=== PATIENT | male | born 1955 | race Caucasian/White ===

== ENCOUNTER 2017-03-06 04:33 | Inpatient (IN) | payer MEDICARE, OTHER ==
[2017-03-06] VITALS (8 sets, daily range): BP systolic 164–198; BP diastolic 92–119; PULSE 78–97; RESP 12–20; TEMP 98.3–98.7; O2SAT 91–98
[~2017-03-06] VITALS: Ht 182.9 cm; Wt 90.0 kg
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
[2017-03-06] MEDS ORDERED: SERO400T PO (05:07)
[2017-03-06] MEDS ORDERED: SERO100T PO (05:07)
[2017-03-06 05:50] LABS: AUTOMATED NEUTROPHIL # 2.6 TH/MM3 (1.8-7.7); BASOPHIL % 0.5 % (0.0-2.0); EOSINOPHIL % 0.8 % (0.0-4.0); HEMATOCRIT 34.3 % (39.0-51.0); LYMPH % 38.9 % (9.0-44.0); MEAN CELL VOLUME 90.1 FL (80.0-100.0); MEAN CORPUSCULAR HEMOGLOBIN 30.2 PG (27.0-34.0); MEAN CORPUSCULAR HGB CONC 33.5 % (32.0-36.0); MONO % 8.2 % (0.0-8.0); NEUT % 51.6 % (16.0-70.0); PLATELET COUNT 86 TH/MM3 (150-450); RED CELL DISTRIBUTION WIDTH 14.4 % (11.6-17.2); WHITE BLOOD COUNT 5.1 TH/MM3 (4.0-11.0)
[2017-03-06 06:16] LABS: ALT (GPT) 17 U/L (12-78); ANION GAP 6 MEQ/L (5-15); AST (GOT) 19 U/L (15-37); BICARBONATE 29.2 MEQ/L (21.0-32.0); BLOOD UREA NITROGEN 25 MG/DL (7-18); CHLORIDE 107 MEQ/L (98-107); GLOMERULAR FILTRATION RATE 45 ML/MIN (>89); POTASSIUM 3.9 MEQ/L (3.5-5.1); SODIUM (NA) 142 MEQ/L (136-145)
[2017-03-06 06:20] LABS: HEMO FLAGS AUTO DIFF
[2017-03-06 06:25] LABS: OVALOCYTES 1+ (NORMAL); PLATELET ESTIMATE SMEAR LOW (NORMAL); PLATELET MORPHOLOGY NORMAL (NORMAL); SCAN/DIFF AUTO DIFF CONFIRMED
[2017-03-06 06:27] LABS: ALKALINE PHOSPHATASE 41 U/L (45-117); TOTAL BILIRUBIN ADULT 0.3 MG/DL (0.2-1.0)
[2017-03-06] MEDS: RESP: ALBUTEROL 2.5 MG/IPRATROPIUM 0.5 MG NEB (SCH) INH (07:20)
--- NOTE | 2017-03-06 07:21 | RADRPT ---
EXAM DATE/TIME: 03/06/2017 07:04 [facility] COMPARISON: No previous studies available for comparison. INDICATIONS : Wheezing, cough, body aches, tingling feeling in hands. MEDICAL HISTORY : None. SURGICAL HISTORY : None. ENCOUNTER: Initial ACUITY: 1 month PAIN SCORE: 0/10 LOCATION: Bilateral chest FINDINGS: A single view of the chest demonstrates the lungs to be symmetrically aerated without evidence of mas s or effusion. The cardiomediastinal contours are unremarkable reveal otherwise a tortuosity of the aorta . Osseous structures are intact. Patchy asymmetry of markings in the right medial base with sl ight elevation of the right hemidiaphragm suggest possible infiltrate CONCLUSION: Minimal elevation right hemidiaphragm with patchy markings in the right medial base suggesting minima l early infiltrate Saqib Dickerson MD on March 06, 2017 at 7:18 Board Certified Radiologist. This report was verified electronically.
[2017-03-06] MEDS ORDERED: cloNIDine HCL 0.2 MG TAB PO ONE (07:30)
[2017-03-06] MEDS ORDERED: methylPREDNISolone SOD SUCC 125 MG/2 ML VIAL IVP ONE (07:30)
[2017-03-06] MEDS ORDERED: AZITHROMYCIN 250 MG TAB PO ONE (08:45)
[2017-03-06] MEDS ORDERED: VENTAER INH ×2 (08:52→14:39)
[2017-03-06] MEDS ORDERED: AMLO5TAB2 PO ×2 (08:52→14:39)
[2017-03-06] MEDS ORDERED: AZIT250T3 PO ×2 (08:52→14:39)
[2017-03-06] MEDS ORDERED: PRED-503 PO ×2 (08:52→14:39)
--- NOTE | 2017-03-06 08:52 | PD ---
Physical Exam Narrative Received sign out from previous team to follow up CXR and reevaluate pt. 62yo M with bipolar disorder under Sal Act for disorganized behavior and stating he was going to kill his mother. Pt found to be wheezing and was given duonebs and methylprednisolone. Pt admits to being a cigarette smoker. He is well appearing and denies any chest pain or sob. He does have expiratory coarse breath sounds bilaterally. Denies any fever, nausea or vomiting. Labs reviewed, no leukocytosis. H/H mildly decreased at 11.5/34.3. Creatinine mildly elevated at 1.57, no prior to compare to. TSH mildly elevated at 4.72, will add T4. Alcohol negative. CXR showed minimal elevation in right hemidiaphragm with patchy markings in right medial base suggesting minimal early infiltrate. Pt given azithromycin 500mg PO. Pt reevaluated at bedside and feels better. O2 sat 93% on RA. Will discharge with COPD medication and a few days of azithromycin. BP is 168/119, will give amlodipine and start pt on amlodipine and have him follow up with primary care physician as an outpatient. Pt likely has chronic untreated HTN. Pt is pending psych evaluation. Data Data Last Documented VS Vital Signs Date Time Temp Pulse Resp B/P Pulse Ox O2 Delivery O2 Flow Rate FiO2 03/06/17 09:35 84 20 164/92 93 Room Air 03/06/17 08:10 2 03/06/17 05:03 98.6 Orders Complete Blood Count With Diff (03/06/17 04:56) Comprehensive Metabolic Panel (03/06/17 04:56) Thyroid Stimulating Hormone (03/06/17 04:56) Psych Screen (03/06/17 04:56) Drug Screen, Random Urine (03/06/17 04:56) Alcohol (Ethanol) (03/06/17 04:56) Methylprednisolone So Succ Inj (Solumedr (03/06/17 07:30) Albuterol-Ipratropium Neb (Duoneb Neb) (03/06/17 07:30) Clonidine (Catapres) (03/06/17 07:30) Chest, Single Ap (03/06/17 06:55) Diet Heart Healthy (03/06/17 Breakfast) Azithromycin (Zithromax) (03/06/17 08:45) Amlodipine (Norvasc) (03/06/17 09:00) Thyroxine (T4) (03/06/17 08:57) Admit Order (Ed Use Only) (03/06/17 ) Admit To Inpatient Psych (03/06/17 ) Code Status (03/06/17 11:42) Vital Signs (Adult) JUDITH.Q12H.E (03/06/17 11:42) Activity Oob Ad Venita (03/06/17 11:42) Level Of Observation (Psych) (03/06/17 11:42) Aims-Abnormal Invol Move Scale ONCE (03/06/17 11:42) Acetaminophen (Tylenol) (03/06/17 11:45) Magnesium Hydroxide Liq (Milk Of Magnesi (03/06/17 11:45) Al-Mag Hy-Si 40-40-4 Mg/Ml Liq (Mag-Al P (03/06/17 11:45) Lipid Profile (03/07/17 06:00) Hemoglobin (Hgb) A1c (03/07/17 06:00) Labs Laboratory Tests Test 03/06/17 03/06/17 05:28 10:24 White Blood Count 5.1 TH/MM3 Red Blood Count 3.80 MIL/MM3 Hemoglobin 11.5 GM/DL Hematocrit 34.3 % Mean Corpuscular Volume 90.1 FL Mean Corpuscular Hemoglobin 30.2 PG Mean Corpuscular Hemoglobin 33.5 % Concent Red Cell Distribution Width 14.4 % Platelet Count 86 TH/MM3 Mean Platelet Volume 9.5 FL Neutrophils (%) (Auto) 51.6 % Lymphocytes (%) (Auto) 38.9 % Monocytes (%) (Auto) 8.2 % Eosinophils (%) (Auto) 0.8 % Basophils (%) (Auto) 0.5 % Neutrophils # (Auto) 2.6 TH/MM3 Lymphocytes # (Auto) 2.0 TH/MM3 Monocytes # (Auto) 0.4 TH/MM3 Eosinophils # (Auto) 0.0 TH/MM3 Basophils # (Auto) 0.0 TH/MM3 CBC Comment AUTO DIFF Differential Comment AUTO DIFF CONFIRMED Platelet Estimate LOW Platelet Morphology Comment NORMAL Ovalocytes 1+ Sodium Level 142 MEQ/L Potassium Level 3.9 MEQ/L Chloride Level 107 MEQ/L Carbon Dioxide Level 29.2 MEQ/L Anion Gap 6 MEQ/L Blood Urea Nitrogen 25 MG/DL Creatinine 1.57 MG/DL Estimat Glomerular Filtration 45 ML/MIN Rate Random Glucose 92 MG/DL Calcium Level 8.4 MG/DL Total Bilirubin 0.3 MG/DL Aspartate Amino Transf 19 U/L (AST/SGOT) Alanine Aminotransferase 17 U/L (ALT/SGPT) Alkaline Phosphatase 41 U/L Total Protein 6.9 GM/DL Albumin 3.1 GM/DL Thyroxine (T4) 4.3 MCG/DL Thyroid Stimulating Hormone 4.720 uIU/ML 3rd Gen Ethyl Alcohol Level LESS THAN 3 MG/DL Urine Opiates Screen NEG Urine Barbiturates Screen NEG Urine Amphetamines Screen NEG Urine Benzodiazepines Screen POS Urine Cocaine Screen NEG Urine Cannabinoids Screen NEG MDM Supervised Visit with RAMESH: Yes Diagnosis Primary Impression: COPD exacerbation Additional Instruction: Please follow up with primary care physician as an outpatient for your elevated blood pressure and elevated kidney function as well as possible COPD. Med/Other Pt SpecificInfo: Prescription(s) given Scripts Amlodipine 5 Mg Tab5 Mg PO DAILY #30 TAB Ref 0 Prov:Natalia Kaye DO 03/06/17 Prednisone (Deltasone)20 Mg Tab20 Mg PO BID 5 Days Ref 0 Prov:Natalia Kaye DO 03/06/17 Albuterol 18 GM Inh (Ventolin Hfa 18 GM Inh)90 Mcg/Act Aer2 Puff INH Q4H PRN ( SHORTNESS OF BREATH) #1 INHALER Ref 0 Prov:Natalia Kaye DO 03/06/17 Azithromycin 250 Mg [id number] Mg PO DAILY 5 Days Ref 0 Prov:Natalia Kaye DO 03/06/17 Condition: Stable Natalia Kaye DO Mar 06, 2017 08:52
[2017-03-06] MEDS ORDERED: amLODIPine BESYLATE 5 MG TAB PO ONE (09:00)
[2017-03-06 11:03] LABS: AMPHETAMINE, URINE NEG (NEG); BARBITURATES, URINE NEG (NEG); COCAINE, URINE NEG (NEG)
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
[2017-03-06] MEDS ORDERED: ALUMINUM/MAGNESIUM/SIMETH 30 ML CUP PO PRN (11:45)
[2017-03-06] MEDS ORDERED: ACETAMINOPHEN 325 MG TAB PO PRN (11:45)
[2017-03-06] MEDS ORDERED: MAGNESIUM HYDROXIDE SUSP 30 ML CUP PO PRN (11:45)
[2017-03-06] MEDS ORDERED: hydrOXYzine HCL 50 MG TAB PO ONE (20:45)
--- NOTE | 2017-03-06 22:09 | HHI.PR ---
Addendum to Inpatient Note Addendum Reason: Additional Documentation Additional Information I was contacted by pt's psychiatry nurse Rebeka Blackburn about 10min ago that pt is a brand new admission to her and that pt has been having high blood pressure and wanted blood pressure meds PRN. chart reviewed on computer Patient was a new admission to our hospital. Patient was evaluated by ER physician. Patient was also evaluated by psychiatry nurse practitioner in ER in the morning. Patient was given Norvasc 5 mg by mouth 1 dose in the morning. Medications reconciliation reveals that this was his home meds. There was no psychiatry medications on EMR. It seems the patient was admitted for acute psychiatric reason. I therefore informed the above to patient's nurse Rebeka, and that I question whether patient is someone requiring psychiatry medications to control his blood pressure rather than blood pressure medicines since he already received his home meds dose. Furthermore, I have informed her that this was a routine consult and that medical service has 24 hours to see this patient. I will not be making any decisions without seeing the patient in person. I recommended to patient's nurse to call psychiatry nurse practitioner or psychiatry doctor regarding this and to make sure that patient has psychiatry medications to control. Our hospital policy is that if the patient needs to be seen medically stat overnight, physician to physician telephone consult needs to be placed. Saul Nettles MD Mar 06, 2017 22:09
[2017-03-06] MEDS ORDERED: fluPHENAZine HCL 25 MG/10 ML VIAL IM SCH (23:15)
[2017-03-06] MEDS ORDERED: LORazepam 2 MG TAB PO SCH (23:15)
[2017-03-06] MEDS ORDERED: LORazepam 2 MG/ML VIAL IM SCH (23:15)
[2017-03-07] MEDS ORDERED: LORazepam 2 MG/ML VIAL ONE (03:31)
[2017-03-07] MEDS ORDERED: LORazepam 2 MG/ML VIAL IM SCH (03:45)
[2017-03-07] MEDS ORDERED: LORazepam 2 MG TAB PO SCH (03:45)
[2017-03-07] MEDS ORDERED: fluPHENAZine HCL 25 MG/10 ML VIAL IM SCH (03:45)
[2017-03-07] MEDS ORDERED: LORazepam 2 MG/ML VIAL IM PRN (08:45)
[2017-03-07] MEDS ORDERED: OLANZapine IM 10 MG VIAL IM PRN (08:45)
[2017-03-07] MEDS ORDERED: diphenhydrAMINE HCL 50 MG/ML VIAL IM PRN (08:45)
[2017-03-07] MEDS ORDERED: fluPHENAZine HCL 25 MG/10 ML VIAL IM PRN (08:45)
[2017-03-07] MEDS ORDERED: diphenhydrAMINE HCL 50 MG CAP PO PRN (08:45)
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
[2017-03-07] MEDS: OLANZapine ODT 10 MG TAB PO SCH ×2 (09:00→20:22)
--- NOTE | 2017-03-07 11:19 | PD.CONS ---
HPI Service [facility] Hospitalists Consult Requested By Dr. Araujo, Psychiatrist. Reason for Consult Hypertension management. Primary Care Physician No Primary Care Physician Diagnoses: History of Present Illness Written by Gualberto Amezcua, acting as scribe for Dr. Kleber Verma on 03/07/17 at 11: 18. Hospitalist team consulted by Dr. Araujo to manage Mr. Pena' hypertension. At time of visit, Mr. Cyr was laying a bed, with blanket wrapped around him. He said he "didn;t want to be seen by anybody." Dr. Verma explained the nature of the visit and Mr. Cyr again stated "I don;t want to be seen by anybody." As a result, histoy was not directly obtained from him as were review of symptoms. As such, the following is taken from the ED report. 62yo M with bipolar disorder under Sal Act for disorganized behavior and stating he was going to kill his mother. Pt found to be wheezing and was given duonebs and methylprednisolone. Pt admits to being a cigarette smoker. He is well appearing and denies any chest pain or sob. He does have expiratory coarse breath sounds bilaterally. Denies any fever, nausea or vomiting. Labs reviewed, no leukocytosis. H/H mildly decreased at 11.5/34.3. Creatinine mildly elevated at 1.57, no prior to compare to. TSH mildly elevated at 4.72, will add T4. Alcohol negative. CXR showed minimal elevation in right hemidiaphragm with patchy markings in right medial base suggesting minimal early infiltrate. Pt given azithromycin 500mg PO. Pt reevaluated at bedside and feels better. O2 sat 93% on RA. Will discharge with COPD medication and a few days of azithromycin. BP is 168/119, will give amlodipine and start pt on amlodipine and have him follow up with primary care physician as an outpatient. Pt likely has chronic untreated HTN. Review of Systems ROS Limitations: Clinical Condition, Uncooperative, Refused, Psychotic Past Family Social History Allergies: Coded Allergies: Haloperidol (Verified Allergy, Severe, 03/06/17) UNKNOWN REACTION Thorazine (Verified Allergy, Severe, 03/06/17) EPS SYMPTOMS PER PATIENT Past Medical History Per records bipolar disorder, HTN, also patient was recently in the ED with COPD exacerbation Past Surgical History Per records cholecystectomy Reported Medications Reported Meds & Active Scripts Active Amlodipine (Amlodipine Besylate) 5 Mg Tab 5 Mg PO DAILY Deltasone (Prednisone) 20 Mg Tab 20 Mg PO BID 5 Days Ventolin Hfa 18 GM Inh (Albuterol Sulfate) 90 Mcg/Act Aer 2 Puff INH Q4H PRN Azithromycin 250 Mg Tab 250 Mg PO DAILY 5 Days Reported Azithromycin 250 Mg Tab 250 Mg PO DAILY Amlodipine (Amlodipine Besylate) 5 Mg Tab 5 Mg PO DAILY Deltasone (Prednisone) 20 Mg Tab 20 Mg PO BID Ventolin Hfa 18 GM Inh (Albuterol Sulfate) 90 Mcg/Act Aer 2 Puff INH Q4H PRN Seroquel (Quetiapine Fumarate) 100 Mg Tab 100 Mg PO DAILY Seroquel (Quetiapine Fumarate) 400 Mg Tab 400 Mg PO HS Active Ordered Medications Current Medications Medications (Trade) Dose Ordered Sig/Luis Route Start Time Stop Time Status Last Admin (Tylenol) 650 mg Q4H PRN PO 03/06/17 11:45 (Milk Of Magnesia Liq) 30 ml DAILY PRN PO 03/06/17 11:45 (Mag-Al Plus Susp Liq) 30 ml Q6H PRN PO 03/06/17 11:45 (ZyPREXA ZYDIS ODT) 10 mg Q12HR PO 03/07/17 09:00 (ZyPREXA INJ) 10 mg Q12H PRN IM 03/07/17 08:45 03/07/17 11:01 (Prolixin Inj) 5 mg TID PRN IM 03/07/17 08:45 (Prolixin) 5 mg TID PRN PO 03/07/17 08:45 (Ativan) 2 mg Q6H PRN PO 03/07/17 08:45 (Ativan Inj) 2 mg Q6H PRN IM 03/07/17 08:45 (Benadryl) 50 mg Q6H PRN PO 03/07/17 08:45 (Benadryl Inj) 50 mg Q6H PRN IM 03/07/17 08:45 (Catapres) 0.1 mg Q8HR PRN PO 03/07/17 08:45 (Norvasc) 10 mg DAILY PO 03/08/17 09:00 (Romazicon Inj) 0.2 mg Q1M PRN IV PUSH 03/07/17 12:45 (Ativan) 1 mg Q4H PRN PO 03/07/17 12:45 (Ativan Inj) 1 mg Q4H PRN IV PUSH 03/07/17 12:45 (Ativan) 2 mg Q2H PRN PO 03/07/17 12:45 (Ativan Inj) 2 mg Q2H PRN IV PUSH 03/07/17 12:45 (Ativan Inj) 2 mg Q1H PRN IV PUSH 03/07/17 12:45 (Ativan Inj) 2 mg Q15M PRN IV PUSH 03/07/17 12:45 Family History Non obtainable, not in records Social History Per records smoking unspecified, no EtOH or illicit drug use. Physical Exam Vital Signs Vital Signs Date Time Temp Pulse Resp B/P Pulse Ox O2 Delivery O2 Flow Rate FiO2 03/06/17 18:01 98.3 90 17 191/99 98 03/06/17 14:15 98.7 90 18 173/115 95 03/06/17 12:35 78 18 175/109 Physical Exam GENERAL: This is a well-nourished, well-developed patient, in bed, psychotic, covered in blankets refusing physical exam or answering questions Result Diagram: 03/06/17 0528 03/06/17 0528 Imaging Last Impressions Chest X-Ray 03/06/17 0655 Signed Impressions: Service Date/Time: Monday, March 06, 2017 07:04 - CONCLUSION: Minimal elevation right hemidiaphragm with patchy markings in the right medial base suggesting minimal early infiltrate Saqib Dickerson MD Assessment and Plan Assessment and Plan 62yo M with bipolar disorder, HTN, COPD who came under Sal Act for disorganized behavior and stating he was going to kill his mother. Pt found to be wheezing and was given duonebs and methylprednisolone. The hospitalist is consulted for uncontrolled HTN, medical management. Psychosis: management per psychiatry HTN, uncontrolled. Increase amlodipine, add clonidine prn, hydralazine prn COPD continue home meds. Satting well on room air. he doesn't appear sob. Continue Azithromax that was initiated in the ED. Patient refused answering questions and also refused physical exam. This note was transcribed by renata AVILES I, Dr. Janie Verma personally performed the history, physical exam, and medical decision making; and confirmed the accuracy of the information in the transcribed note. Authenticated by Dr. Janie Verma on 03/07/17 at 11:18. Discussed Condition With nurse Gualberto Amezcua Jr. Mar 07, 2017 11:19 Janie Verma MD Mar 07, 2017 11:52
[2017-03-07] MEDS ORDERED: FLUMAZENIL 0.5 MG/5 ML VIAL IV PUSH PRN (12:45)
[2017-03-07] MEDS ORDERED: LORazepam 2 MG/ML VIAL IV PUSH PRN ×4 (12:45)
[2017-03-07] MEDS ORDERED: LORazepam 2 MG TAB PO PRN (12:45)
[2017-03-07] MEDS: cloNIDine HCL 0.1 MG TAB PO PRN (20:24)
[2017-03-07] MEDS: LORazepam 2 MG TAB PO PRN (20:24)
[2017-03-08] MEDS: LORazepam 2 MG TAB PO PRN ×2 (03:42→17:26)
[2017-03-08] MEDS: cloNIDine HCL 0.1 MG TAB PO PRN (03:42)
[2017-03-08 04:28] VITALS: BP 183/116; PULSE 79; RESP 18; TEMP 97.8; O2SAT 96
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
[2017-03-08] MEDS: OLANZapine ODT 10 MG TAB PO SCH ×2 (07:55→20:42)
[2017-03-08] MEDS ORDERED: PILL SPLITTER OTHER PRN (08:00)
[2017-03-08] MEDS ORDERED: hydrALAZINE HCL 10 MG TAB PO PRN (08:00)
[2017-03-08] MEDS ORDERED: cloNIDine HCL 0.1 MG TAB PO PRN (08:00)
[2017-03-08 08:46] LABS: AUTOMATED NEUTROPHIL # 3.8 TH/MM3 (1.8-7.7); BASOPHIL % 0.3 % (0.0-2.0); EOSINOPHIL % 0.7 % (0.0-4.0); HEMATOCRIT 40.3 % (39.0-51.0); HEMO FLAGS DIFF FINAL; LYMPH % 37.6 % (9.0-44.0); LYMPHOCYTE # 2.7 TH/MM3 (1.0-4.8); MEAN CELL VOLUME 89.5 FL (80.0-100.0); MEAN CORPUSCULAR HEMOGLOBIN 30.6 PG (27.0-34.0); MEAN CORPUSCULAR HGB CONC 34.2 % (32.0-36.0); MONO % 7.9 % (0.0-8.0); NEUT % 53.5 % (16.0-70.0); PLATELET COUNT 106 TH/MM3 (150-450); RED CELL DISTRIBUTION WIDTH 14.4 % (11.6-17.2); WHITE BLOOD COUNT 7.1 TH/MM3 (4.0-11.0)
[2017-03-08 09:07] LABS: ANION GAP 5 MEQ/L (5-15); AST (GOT) 20 U/L (15-37); BICARBONATE 34.4 MEQ/L (21.0-32.0); BLOOD UREA NITROGEN 26 MG/DL (7-18); CHLORIDE 104 MEQ/L (98-107); GLOMERULAR FILTRATION RATE 58 ML/MIN (>89); POTASSIUM 4.5 MEQ/L (3.5-5.1); SODIUM (NA) 143 MEQ/L (136-145)
[2017-03-08] MEDS: LORazepam 1 MG TAB PO PRN ×2 (09:10→13:57)
[2017-03-08] MEDS: METOPROLOL TARTRATE 25 MG TAB PO SCH ×2 (09:12→17:25)
[2017-03-08 09:13] LABS: ALKALINE PHOSPHATASE 45 U/L (45-117); ALT (GPT) 21 U/L (12-78); HDL CHOLESTEROL 57.1 MG/DL (40.0-60.0); LDL CHOLESTEROL 58 MG/DL (0-99); TOTAL BILIRUBIN ADULT 0.6 MG/DL (0.2-1.0)
[2017-03-08 09:46] VITALS: BP 161/97; PULSE 70; RESP 18
--- NOTE | 2017-03-08 12:13 | HHI.PYPN ---
Subjective Remarks Patient seen in his room with nurse Michelle medical student Saida. Chart reviewed. Patient irritable with me minimizes behaviors that led to this hospitalization. States he and his mother get along well with the support each other. He minimizes his prior history of mental health problems. Patient was admitted to Dr. Kurt wagoner service under the Sal act. His H&P reviewed and agreed with. He has done a first opinion petition supporting Sal act. I agree. Patient meets criteria for involuntary psychiatric hospitalization under the Sal act. Thus I will cosign second opinion petition supporting Sal act Review of Systems Constitutional: DENIES: Diaphoretic episodes, Fatigue, Fever, Weight gain, Weight loss, Chills, Dizziness, Change in appetite, Night Sweats Endocrine: DENIES: Heat/cold intolerance, Polydipsia, Polyuria, Polyphagia Eyes: DENIES: Blurred vision, Diplopia, Eye inflammation, Eye pain, Vision loss , Photosensitivity, Double Vision Ears, nose, mouth, throat: DENIES: Tinnitus, Hearing loss, Vertigo, Nasal discharge, Oral lesions, Throat pain, Hoarseness, Ear Pain, Running Nose, Epistaxis, Sinus Pain, Toothache, Odynophagia Respiratory: DENIES: Apneas, Cough, Snoring, Wheezing, Hemoptysis, Sputum production, Shortness of breath Cardiovascular: DENIES: Chest pain, Palpitations, Syncope, Dyspnea on Exertion , PND, Lower Extremity Edema, Orthopnea, Claudication Gastrointestinal: DENIES: Abdominal pain, Black stools, Bloody stools, Constipation, Diarrhea, Nausea, Vomiting, Difficulty Swallowing, Anorexia Genitourinary: DENIES: Sexual dysfunction, Urinary frequency, Urinary incontinence, Urgency, Hematuria, Dysuria, Nocturia, Penile Discharge, Testicular Pain, Testicular Swelling Musculoskeletal: DENIES: Joint pain, Muscle aches, Stiffness, Joint Swelling, Back pain, Neck pain Integumentary: DENIES: Abnormal pigmentation, Nail changes, Pruritus, Rash Hematologic/lymphatic: DENIES: Bruising, Lymphadenopathy Immunologic/allergic: DENIES: Eczema, Urticaria Neurologic: DENIES: Abnormal gait, Headache, Localized weakness, Paresthesias, Seizures, Speech Problems, Tremor, Poor Balance Psychiatric: COMPLAINS OF: Mood changes, Agitation Objective Alert: Yes [place]: Person, Place (knows he is in a hospital ) Mood: Other (labile) Affect: Other (expansive) Memory Intact: Comment (Not formally tetsed) Hallucinations: Other (deneis at present) Delusions: Yes Delusion Type: Paranoid (Believes his mother is trying to harm him) Suicidal: Ideation (deneis) Homicidal: Ideation (deneis at present but verbalized ideas when he was picked up by the police.) Insight/Judgment Poor Labs Test 03/08/17 07:17 White Blood Count 7.1 TH/MM3 Red Blood Count 4.50 MIL/MM3 Hemoglobin 13.8 GM/DL Hematocrit 40.3 % Mean Corpuscular Volume 89.5 FL Mean Corpuscular Hemoglobin 30.6 PG Mean Corpuscular Hemoglobin 34.2 % Concent Red Cell Distribution Width 14.4 % Platelet Count 106 TH/MM3 Mean Platelet Volume 10.2 FL Neutrophils (%) (Auto) 53.5 % Lymphocytes (%) (Auto) 37.6 % Monocytes (%) (Auto) 7.9 % Eosinophils (%) (Auto) 0.7 % Basophils (%) (Auto) 0.3 % Neutrophils # (Auto) 3.8 TH/MM3 Lymphocytes # (Auto) 2.7 TH/MM3 Monocytes # (Auto) 0.6 TH/MM3 Eosinophils # (Auto) 0.0 TH/MM3 Basophils # (Auto) 0.0 TH/MM3 CBC Comment DIFF FINAL Differential Comment Sodium Level 143 MEQ/L Potassium Level 4.5 MEQ/L Chloride Level 104 MEQ/L Carbon Dioxide Level 34.4 MEQ/L Anion Gap 5 MEQ/L Blood Urea Nitrogen 26 MG/DL Creatinine 1.27 MG/DL Estimat Glomerular Filtration 58 ML/MIN Rate Random Glucose 84 MG/DL Calcium Level 8.8 MG/DL Total Bilirubin 0.6 MG/DL Aspartate Amino Transf 20 U/L (AST/SGOT) Alanine Aminotransferase 21 U/L (ALT/SGPT) Alkaline Phosphatase 45 U/L Total Protein 7.2 GM/DL Albumin 3.2 GM/DL Triglycerides Level 108 MG/DL Cholesterol Level 137 MG/DL LDL Cholesterol 58 MG/DL HDL Cholesterol 57.1 MG/DL Cholesterol/HDL Ratio 2.39 RATIO Vitals/IOs Vital Signs Date Time Temp Pulse Resp B/P Pulse Ox O2 Delivery O2 Flow Rate FiO2 03/08/17 09:46 70 18 161/97 03/08/17 04:28 97.8 96 03/06/17 09:35 Room Air 03/06/17 08:10 2 Assessment & Plan Problem List: (1) Schizoaffective disorder ICD Code: F25.9 Assessment & Plan Estimated LOS: days to be determined by patient's treatment team Justification for Cont. Inpt. This time patient will decompensate placed a lower level of care Discharge Planning To be determined by treatment team Request HC Surrog/Guard Advoc?: Yes Problem Qualifiers (1) Schizoaffective disorder: Qualified Code: F25.8 - Other schizoaffective disorders Jimenez Benavidez MD Mar 08, 2017 12:13
[2017-03-08 14:23] LABS: BLOOD, URINE NEG (NEG); COMMENT (UR) CULT NOT INDICATED; CULTURE IF INDICATED CULT NOT INDICATED; GLUCOSE,URINE NEG (NEG); KETONE, URINE NEG (NEG); NITRITE,URINE NEG (NEG); URINE COLOR YELLOW (YELLW/STRAW)
--- NOTE | 2017-03-08 15:26 | HHI.PR ---
Subjective Remarks In bed, more cooperative today. Says she has no headache or change in vision. No n/v/d/c. Says she is having BP and was started on meds however he did not take his meds. Denies headache, motor or sensory deficit. No n/v/d/c. No fever or chills. No sob or cough. Objective Vitals Vital Signs Date Time Temp Pulse Resp B/P Pulse Ox O2 Delivery O2 Flow Rate FiO2 03/08/17 09:46 70 18 161/97 03/08/17 04:28 97.8 79 18 183/116 96 Result Diagram: 03/08/1771603/08/17716 Imaging Last Impressions Chest X-Ray 03/06/17 0655 Signed Impressions: Service Date/Time: Monday, March 06, 2017 07:04 - CONCLUSION: Minimal elevation right hemidiaphragm with patchy markings in the right medial base suggesting minimal early infiltrate Saqib Dickerson MD Objective Remarks GENERAL: 62-year-old male, sitting in bed, well-nourished well-developed patient , appears in not acute distress. SKIN: Warm and dry. HEAD: Atraumatic. Normocephalic. EYES: Pupils equal and round. No scleral icterus. No injection or drainage. ENT: No nasal bleeding or discharge. Mucous membranes pink and moist. NECK: Trachea midline. No JVD. CARDIOVASCULAR: Regular rate and rhythm. RESPIRATORY: No accessory muscle use. Clear to auscultation. Breath sounds equal bilaterally. GASTROINTESTINAL: Abdomen soft, non-tender, nondistended. Hepatic and splenic margins not palpable. MUSCULOSKELETAL: Extremities without clubbing, cyanosis, or edema. No obvious deformities. NEUROLOGICAL: Awake and alert. No obvious cranial nerve deficits. Motor grossly within normal limits. Five out of 5 muscle strength in the arms and legs. Normal speech. PSYCHIATRIC: Appropriate mood and affect; insight and judgment normal. A/P Assessment and Plan 62yo M with bipolar disorder, HTN, COPD who came under Sal Act for disorganized behavior and stating he was going to kill his mother. Pt found to be wheezing and was given duonebs and methylprednisolone. The hospitalist is consulted for uncontrolled HTN, medical management. Psychosis: management per psychiatry HTN, uncontrolled. Increase amlodipine, add clonidine prn, hydralazine prn. Add metoprolol as BP still elevated and also noted mild tachycardia PNA CXR reviewed poss right lower lung infiltrate, sattign well on room air , no cough. Continue Z pack. COPD without exacerbation at this time. Monitor. \Ccontinue home meds. Satting well on room air. he doesn't appear sob. Continue Azithromax that was initiated in the ED. Discussed Condition With patient, nurse, Dr Leonard psych Janie Verma MD Mar 08, 2017 15:26
[2017-03-08 16:38] LABS: HEMOGLOBIN A1a 1.2 %; HEMOGLOBIN A1b 0.8 %; HEMOGLOBIN Ao 84.9 %; HEMOGLOBIN F 1.4 %; HEMOGLOBIN LA1C 1.9 %; HEMOGLOBIN P3 3.9 %
[2017-03-08 18:09] VITALS: BP 173/109; PULSE 96; RESP 18; TEMP 98.6; O2SAT 97
[2017-03-09 03:55] VITALS: BP 160/116
[2017-03-09 05:58] VITALS: BP 140/99; PULSE 78; RESP 18; TEMP 98.2; O2SAT 97
[2017-03-09] MEDS: OLANZapine ODT 10 MG TAB PO SCH (09:00)
[2017-03-09] MEDS: AZITHROMYCIN 250 MG TAB PO SCH (09:00)
[2017-03-09] MEDS: METOPROLOL TARTRATE 25 MG TAB PO SCH ×2 (09:00→21:40)
--- NOTE | 2017-03-09 09:56 | HHI.PYPN ---
Subjective Remarks Patient seen and examined with nurse. Chart reviewed. Case discussed with nursing staff who reports the patient was agitated overnight and required Ativan but has been calmer so far this morning. On my examination today, the patient is calm and cooperative. He says that his goal is to get back to the [facility] and get his medications prescribed. He denies any SI, HI or AVH. He admits to having had "troubles here and there" with his mother but says that his hope is to reconcile and his relationship with her. Denies any substance use prior to admission and reports no withdrawal symptoms now. Denies side effects from medications and is agreeable to titration of his Zyprexa. No physical complaints. Review of Systems ROS Limitations: Poor Historian Except as stated in HPI: all other systems reviewed are Neg Objective Alert: Yes [place]: Person, Place Mood: Calm Affect: Appropriate Memory Intact: Comment (not formally assessed) Hallucinations: Other (denies hallucinations) Delusions: No Delusion Type: Other (no delusional material) Suicidal: Ideation (denies SI) Homicidal: Ideation (denies HI) Insight/Judgment Poor Remarks No motor abnormalities noted. No signs of withdrawal noted. Grooming and hygiene fair. Resolving thought disorder. Labs Test 03/08/17 13:20 Urine Color YELLOW Urine Turbidity CLEAR Urine pH 7.0 Urine Specific [place] 1.012 Urine Protein 300 mg/dL Urine Glucose (UA) NEG mg/dL Urine Ketones NEG mg/dL Urine Occult Blood NEG Urine Nitrite NEG Urine Bilirubin NEG Urine Urobilinogen LESS THAN 2.0 MG/DL Urine Leukocyte Esterase NEG Urine RBC 1 /hpf Urine WBC LESS THAN 1 /hpf Microscopic Urinalysis Comment CULT NOT INDICATED Vitals/IOs Vital Signs Date Time Temp Pulse Resp B/P Pulse Ox O2 Delivery O2 Flow Rate FiO2 03/09/17 05:58 98.2 78 18 140/99 97 03/06/17 09:35 Room Air 03/06/17 08:10 2 Assessment & Plan Problem List: (1) Schizoaffective disorder ICD Code: F25.9 Assessment & Plan Titrate Zyprexa to 10/15 mg daily to target residual psychotic symptoms. Appreciate hospitalist input. Continue other psychotropics as ordered. Continue other medications and care as ordered. Justification for Cont. Inpt. Medication change in process. Discharge Planning Possible discharge sometime next week if patient continues to improve. Request HC Surrog/Guard Advoc?: Yes Problem Qualifiers (1) Schizoaffective disorder: Qualified Code: F25.8 - Other schizoaffective disorders Kurt Leonard MD Mar 09, 2017 09:56
[2017-03-09 18:00] VITALS: BP 140/69; PULSE 64; RESP 18; TEMP 98.5; O2SAT 97
[2017-03-09] MEDS: OLANZapine ODT 15 MG TAB PO SCH (21:39)
[2017-03-10] MEDS: LORazepam 2 MG TAB PO PRN (03:09)
[2017-03-10 03:15] VITALS: BP 168/84; PULSE 80; RESP 22; O2SAT 92
[2017-03-10] MEDS: METOPROLOL TARTRATE 25 MG TAB PO SCH ×2 (08:41→20:41)
[2017-03-10] MEDS: OLANZapine ODT 10 MG TAB PO SCH (08:42)
[2017-03-10] MEDS: AZITHROMYCIN 250 MG TAB PO SCH (08:42)
[2017-03-10 10:02] VITALS: BP 126/79; PULSE 80; RESP 18
--- NOTE | 2017-03-10 13:11 | HHI.PYPN ---
Subjective Remarks Pt seen and discussed with staff. Staff report that pt has been displaying poor impulse control, bizarre behavior and obsessively masturbating. He is tolerating increase in olanzapine without side effects. No SI/HI Objective Alert: Yes [place]: Person, Place Mood: Calm Affect: Other (intense stare) Memory Intact: Comment (no gross deficits) Hallucinations: Other (denies hallucinations) Delusions: No Delusion Type: Other (no delusional material) Suicidal: Ideation (denies SI) Homicidal: Ideation (denies HI) Insight/Judgment poor Remarks disorganized Vitals/IOs Vital Signs Date Time Temp Pulse Resp B/P Pulse Ox O2 Delivery O2 Flow Rate FiO2 03/10/17 10:02 80 18 126/79 03/10/17 03:15 92 03/09/17 18:00 98.5 03/06/17 09:35 Room Air 03/06/17 08:10 2 Assessment & Plan Problem List: (1) Schizoaffective disorder ICD Code: F25.9 Assessment & Plan Continue curent tx plan. Estimated LOS: days Justification for Cont. Inpt. disorganization and severe impairments in social functioning Request HC Surrog/Guard Advoc?: Yes Problem Qualifiers (1) Schizoaffective disorder: Qualified Code: F25.8 - Other schizoaffective disorders Raquel Lei MD Mar 10, 2017 13:11
--- NOTE | 2017-03-10 13:53 | HHI.PR ---
Subjective Remarks In bed. Says he ate lunch no n/v/d/c. Denies any pain. No cp, sob, fever or chills. No cough. No headache. Objective Vitals Vital Signs Date Time Temp Pulse Resp B/P Pulse Ox O2 Delivery O2 Flow Rate FiO2 03/10/17 10:02 80 18 126/79 03/10/17 03:15 80 22 168/84 92 03/09/17 18:00 98.5 64 18 140/69 97 Result Diagram: 03/08/1717 03/08/17 0717 Imaging Last Impressions Chest X-Ray 03/06/17 0655 Signed Impressions: Service Date/Time: Monday, March 06, 2017 07:04 - CONCLUSION: Minimal elevation right hemidiaphragm with patchy markings in the right medial base suggesting minimal early infiltrate Saqib Dickerson MD Objective Remarks GENERAL: 62-year-old male, sitting in bed, well-nourished well-developed patient , appears in not acute distress. SKIN: Warm and dry. HEAD: Atraumatic. Normocephalic. EYES: Pupils equal and round. No scleral icterus. No injection or drainage. ENT: No nasal bleeding or discharge. Mucous membranes pink and moist. NECK: Trachea midline. No JVD. CARDIOVASCULAR: Regular rate and rhythm. RESPIRATORY: No accessory muscle use. Clear to auscultation. Breath sounds equal bilaterally. GASTROINTESTINAL: Abdomen soft, non-tender, nondistended. Hepatic and splenic margins not palpable. MUSCULOSKELETAL: Extremities without clubbing, cyanosis, or edema. No obvious deformities. NEUROLOGICAL: Awake and alert. No obvious cranial nerve deficits. Motor grossly within normal limits. Five out of 5 muscle strength in the arms and legs. Normal speech. PSYCHIATRIC: Appropriate mood and affect; insight and judgment normal. A/P Assessment and Plan 62yo M with bipolar disorder, HTN, COPD who came under Sal Act for disorganized behavior and stating he was going to kill his mother. Pt found to be wheezing and was given duonebs and methylprednisolone. The hospitalist is consulted for uncontrolled HTN, medical management. Psychosis: management per psychiatry HTN, uncontrolled. Increase amlodipine, add clonidine prn, hydralazine prn. Add metoprolol as BP still elevated and also noted mild tachycardia. Discussed with the nurse. Bp not controlled. PNA CXR reviewed poss right lower lung infiltrate, sattign well on room air , no cough. Continue Z pack. COPD without exacerbation at this time. Monitor. \Ccontinue home meds. Satting well on room air. he doesn't appear sob. Continue Azithromax that was initiated in the ED. Discussed Condition With patient, nurse, Dr Leonard psych Janie Verma MD Mar 10, 2017 13:53
[2017-03-10 18:15] VITALS: BP 145/92; PULSE 77; RESP 18; TEMP 97.4; O2SAT 93
[2017-03-10] MEDS: LORazepam 1 MG TAB PO PRN (18:40)
[2017-03-10] MEDS: OLANZapine ODT 15 MG TAB PO SCH (20:41)
[2017-03-11] MEDS: LORazepam 1 MG TAB PO PRN ×2 (04:19→20:01)
[2017-03-11 06:34] VITALS: BP 143/90; PULSE 69; RESP 18; TEMP 97; O2SAT 57
[2017-03-11] MEDS: AZITHROMYCIN 250 MG TAB PO SCH (08:44)
[2017-03-11] MEDS: OLANZapine ODT 10 MG TAB PO SCH (08:44)
[2017-03-11] MEDS: METOPROLOL TARTRATE 25 MG TAB PO SCH ×2 (08:44→20:02)
--- NOTE | 2017-03-11 12:07 | HHI.PYPN ---
Subjective Remarks Pt seen and discussed with staff. He was sexually inappropriate last night per staff. He is medication compliant and denies side effects. Mood is still elevated and affect is expansive.No SI/HI Objective Alert: Yes [place]: Person, Place Mood: Other (elevated) Affect: Other (expansive, laughs inappropriately) Memory Intact: Comment (no gross deficits) Hallucinations: Other (denies hallucinations) Delusions: No Delusion Type: Other (no delusional material) Suicidal: Ideation (denies SI) Homicidal: Ideation (denies HI) Insight/Judgment poor Vitals/IOs Vital Signs Date Time Temp Pulse Resp B/P Pulse Ox O2 Delivery O2 Flow Rate FiO2 03/11/17 06:34 97.0 69 18 143/90 57 Assessment & Plan Problem List: (1) Schizoaffective disorder ICD Code: F25.9 Assessment & Plan Continue current tx plan. Estimated LOS: days Justification for Cont. Inpt. impairments in social functioning, risk of decompensation Request HC Surrog/Guard Advoc?: Yes Problem Qualifiers (1) Schizoaffective disorder: Qualified Code: F25.8 - Other schizoaffective disorders Raquel Lei MD Mar 11, 2017 12:07
[2017-03-11] MEDS: LORazepam 2 MG TAB PO PRN (15:31)
[2017-03-11 15:43] VITALS: BP 145/95; PULSE 73; RESP 18; TEMP 98; O2SAT 96
[2017-03-11] MEDS: OLANZapine ODT 15 MG TAB PO SCH (20:01)
[2017-03-12 06:34] VITALS: BP 136/80; PULSE 95; RESP 16; TEMP 98.6; O2SAT 100
[2017-03-12] MEDS: OLANZapine ODT 10 MG TAB PO SCH (08:43)
[2017-03-12] MEDS: METOPROLOL TARTRATE 25 MG TAB PO SCH ×2 (08:43→21:44)
--- NOTE | 2017-03-12 16:30 | HHI.PYPN ---
Subjective Remarks Patient discussed with treatment team, Patient seen in his room with nurse Cora , staff stated before went to the room that this man is a chronic masturbate or. When I went into his room patient was laying naked on his bed masturbating. I told him to cover it up and sit up. He did that without problem though other denies seen to be any embarrassment related to this. He does denies suicidality homicidality voices or visions. Is compliant with his meds says states Magnus has had an issue with dependency and benzodiazepines in the past he is showing no significant symptoms needing to be continued on theciwa protocol. Thus I will discontinue that and discontinue all benzodiazepines. Hopefully consider discharge within 24-48 hours Review of Systems Except as stated in HPI: all other systems reviewed are Neg Objective Alert: Yes [place]: Person, Place Mood: Other (elevated) Affect: Other (expansive, laughs inappropriately) Memory Intact: Comment (no gross deficits) Hallucinations: Other (denies hallucinations) Delusions: No Delusion Type: Other (no delusional material) Suicidal: Ideation (denies SI) Homicidal: Ideation (denies HI) Insight/Judgment Very poor Vitals/IOs Vital Signs Date Time Temp Pulse Resp B/P Pulse Ox O2 Delivery O2 Flow Rate FiO2 03/12/17 06:34 98.6 95 16 136/80 100 Assessment & Plan Problem List: (1) Schizoaffective disorder ICD Code: F25.9 Assessment & Plan Estimated LOS: days patient appears somewhat calmer today does denies suicidality homicidality voices or visions. We'll discontinue the ciwa protocol. For now continue treatment Justification for Cont. Inpt. At this time patient may decompensate to place to the lower level of care Discharge Planning To be determined Request HC Surrog/Guard Advoc?: Yes Problem Qualifiers (1) Schizoaffective disorder: Qualified Code: F25.8 - Other schizoaffective disorders Jimenez Benavidez MD Mar 12, 2017 16:30
[2017-03-12 18:58] VITALS: BP 121/83; PULSE 97; RESP 18; TEMP 98.6; O2SAT 100
[2017-03-12] MEDS: OLANZapine ODT 15 MG TAB PO SCH (21:44)
--- NOTE | 2017-03-12 23:30 | HHI.PR ---
Subjective Remarks denies cp/sob denies cough denies fevers and chills Objective Vitals Vital Signs Date Time Temp Pulse Resp B/P Pulse Ox O2 Delivery O2 Flow Rate FiO2 03/12/17 18:58 98.6 97 18 121/83 100 03/12/17 06:34 98.6 95 16 136/80 100 Result Diagram: 03/08/17 0717 03/08/17 0717 Imaging Last Impressions Chest X-Ray 03/06/17 0655 Signed Impressions: Service Date/Time: Monday, March 06, 2017 07:04 - CONCLUSION: Minimal elevation right hemidiaphragm with patchy markings in the right medial base suggesting minimal early infiltrate Saqib Dickerson MD Objective Remarks GENERAL: 62-year-old male, sitting in bed, well-nourished well-developed patient , appears in not acute distress. SKIN: Warm and dry. HEAD: Atraumatic. Normocephalic. EYES: Pupils equal and round. No scleral icterus. No injection or drainage. ENT: No nasal bleeding or discharge. Mucous membranes pink and moist. NECK: Trachea midline. No JVD. CARDIOVASCULAR: Regular rate and rhythm. RESPIRATORY: No accessory muscle use. Clear to auscultation. Breath sounds equal bilaterally. GASTROINTESTINAL: Abdomen soft, non-tender, nondistended. Hepatic and splenic margins not palpable. MUSCULOSKELETAL: Extremities without clubbing, cyanosis, or edema. No obvious deformities. NEUROLOGICAL: Awake and alert. No obvious cranial nerve deficits. Motor grossly within normal limits. Five out of 5 muscle strength in the arms and legs. Normal speech. PSYCHIATRIC: Appropriate mood and affect; insight and judgment normal. Medications and IVs Current Medications Medications (Trade) Dose Ordered Sig/Luis Route Start Time Stop Time Status Last Admin (Tylenol) 650 mg Q4H PRN PO 03/06/17 11:45 (Milk Of Magnesia Liq) 30 ml DAILY PRN PO 03/06/17 11:45 (Mag-Al Plus Susp Liq) 30 ml Q6H PRN PO 03/06/17 11:45 (ZyPREXA INJ) 10 mg Q12H PRN IM 03/07/17 08:45 03/07/17 11:01 (Prolixin Inj) 5 mg TID PRN IM 03/07/17 08:45 (Prolixin) 5 mg TID PRN PO 03/07/17 08:45 03/12/17 19:20 (Benadryl) 50 mg Q6H PRN PO 03/07/17 08:45 (Benadryl Inj) 50 mg Q6H PRN IM 03/07/17 08:45 (Norvasc) 10 mg DAILY PO 03/08/17 09:00 03/12/17 08:43 (Catapres) 0.2 mg Q8HR PRN PO 03/08/17 08:00 03/09/17 02:58 (Apresoline) 10 mg Q6HR PRN PO 03/08/17 08:00 (Lopressor) 12.5 mg Q12HR PO 03/08/17 09:00 03/12/17 21:44 (Pill Splitter) 1 ea UNSCH PRN OTHER 03/08/17 08:00 (ZyPREXA ZYDIS ODT) 10 mg DAILY PO 03/10/17 09:00 03/12/17 08:43 (ZyPREXA ZYDIS ODT) 15 mg HS PO 03/09/17 21:00 03/12/17 21:44 A/P Problem List: (1) Schizoaffective disorder ICD Code: F25.9 Status: Acute (2) Schizophrenia ICD Code: F20.9 Status: Acute (3) Uncontrolled hypertension ICD Code: I10 Status: Acute Assessment and Plan 62yo M with bipolar disorder, HTN, COPD who came under Sal Act for disorganized behavior and stating he was going to kill his mother. Pt found to be wheezing and was given duonebs and methylprednisolone. The hospitalist is consulted for uncontrolled HTN, medical management. Psychosis: management per psychiatry HTN Bp now stable, continue amlodipine, clonidine prn, hydralazine prn. Add metoprolol as BP still elevated and also noted mild tachycardia. Discussed with the nurse. Bp not controlled. PNA CXR reviewed poss right lower lung infiltrate, sattign well on room air , no cough. sp 5 days of oral azithromycin. COPD without exacerbation at this time. Monitor. Continue home meds. Satting well on room air. he doesn't appear sob. TO: Likely due to prerenal azotemia and dehydration. Creatinine improving and down from 1.5 to 1.2. Encourage po intake. Problem Qualifiers (1) Schizoaffective disorder: Qualified Code: F25.8 - Other schizoaffective disorders (2) Schizophrenia: Qualified Code: F20.0 - Paranoid schizophrenia Calixto Paulson MD Mar 12, 2017 23:30
[2017-03-13 05:42] VITALS: BP 118/74; PULSE 89; RESP 18; TEMP 97.5; O2SAT 92
[2017-03-13] MEDS: METOPROLOL TARTRATE 25 MG TAB PO SCH ×2 (09:00→20:35)
[2017-03-13] MEDS: OLANZapine ODT 10 MG TAB PO SCH (09:00)
--- NOTE | 2017-03-13 17:00 | HHI.PYPN ---
Subjective Remarks Patient seen in dayroom with floor staff, patient fully dressed pleasant with me though his functional disability limitations are quite obvious he is superficial silly and quite childish denying any thoughts desires for wishes to harm himself or anybody especially his mother. For now will increase Zyprexa 15 mg twice a day continue treatment Review of Systems Except as stated in HPI: all other systems reviewed are Neg Objective Alert: Yes [place]: Person, Place Mood: Other (elevated) Affect: Other (expansive, laughs inappropriately) Memory Intact: Comment (no gross deficits) Hallucinations: Other (denies hallucinations) Delusions: No Delusion Type: Other (no delusional material) Suicidal: Ideation (denies SI) Homicidal: Ideation (denies HI) Insight/Judgment Very poor Vitals/IOs Vital Signs Date Time Temp Pulse Resp B/P Pulse Ox O2 Delivery O2 Flow Rate FiO2 03/13/17 05:42 97.5 89 18 118/74 92 Assessment & Plan Problem List: (1) Schizoaffective disorder ICD Code: F25.9 Assessment & Plan Estimated LOS: days patient continues somewhat disorganized superficial silly. At this time is fully clothed in the day room. She medication adjustment above Justification for Cont. Inpt. At this time patient will decompensate if not placed in an appropriate level of care Discharge Planning To be determined Request HC Surrog/Guard Advoc?: Yes Problem Qualifiers (1) Schizoaffective disorder: Qualified Code: F25.8 - Other schizoaffective disorders Jimenez Benavidez MD Mar 13, 2017 17:00
[2017-03-13 18:00] VITALS: BP 143/72; PULSE 80; RESP 17; TEMP 97.7; O2SAT 94
[2017-03-13] MEDS: OLANZapine ODT 15 MG TAB PO SCH (20:36)
[2017-03-14 06:03] VITALS: BP 131/91; PULSE 80; RESP 18; TEMP 97.1; O2SAT 95
[2017-03-14] MEDS: OLANZapine ODT 15 MG TAB PO SCH (08:32)
[2017-03-14] MEDS: METOPROLOL TARTRATE 25 MG TAB PO SCH (08:32)
[2017-03-14] MEDS ORDERED: METO25TA3 PO (10:32)
[2017-03-14] MEDS ORDERED: AMLO10 PO (10:32)
[2017-03-14] MEDS ORDERED: OLANZ15 PO (10:32)
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
== END 2017-03-14 14:40 | disposition home or self-care (01) | DRG 885 ==
LOC: NEPD 04:33 → NEPC 04:33 → NEDA 11:47 → H270 14:01
PROVIDERS: ADMIT Psychiatry & Neurology Psychiatry; ATTEND Psychiatry & Neurology Psychiatry
DX: F25.9 Schizoaffective disorder, unspecified (principal); J18.9 Pneumonia, unspecified organism; N17.9 Acute kidney failure, unspecified; E86.0 Dehydration; I10 Essential (primary) hypertension; F60.2 Antisocial personality disorder; F17.210 Nicotine dependence, cigarettes, uncomplicated; J44.9 Chronic obstructive pulmonary disease, unspecified
CPT/HCPCS: 71010; 80053; 80061; 80307; 81001; 83036; 84436; 84443; 85025; 94640; 94664; 96374; J2060; J2930; Q0163